=== PATIENT | female | born 1980 | race Caucasian/White ===

== ENCOUNTER 2016-07-06 14:09 | Emergency (ER) | payer MEDICAID ==
--- NOTE | 2016-07-06 14:40 | ED Physician Chart ---
Chief Complaint/HPI - Patient Information Date Seen:: 07/06/16 Time Seen:: 14:20 Chief Complaint:: Cyst History of Present Illness:: pt developed a vaginal cyst which was I and D at a local ER and sent home with a drain in it which eventually came out; pt is here today for F/U of this healing cyst; pt denies pain, vaginal bleeding, vaginal discharge, fever, chills , urinary s/s, Abd. pain, pelvic pain, A/N/V/D/C, melena, hematochezia, hematemesis,' Last Tetanus Shot: , 5 years; UTD Allergies:: Allergies Allergy/AdvReac Type Severity Reaction Status Date / Time Penicillins Allergy Verified 07/06/16 14:18 Vitals:: Vital Signs - 8 hr 07/06/16 14:20 Temp 97.7 F HR 107 RR 19 BP 137/78 O2 Sat % 98 Historian:: Patient Review:: Nurse's Note Reviewed Review of Systems - Review of Systems General/Constitutional: Fever, Chills, No weight loss, No weakness, No diaphoresis, No edema, No loss of appetite Skin: Skin lesions, Rash, No bruising Head: No headache, No light-headedness Eyes: No loss of vision, No pain, No diplopia ENT: No earache, No nasal drainage, No sore throat, No tinnitus Neck: No neck pain, No swelling, No thyromegaly, No stiffness, No mass noted Cardio Vascular: No chest pain, No palpitations, No PND, No orthopnea, No edema Pulmonary: No SOB, No cough, No sputum, No wheezing GI: Nausea, Vomiting, Diarrhea, No pain, No melena, No hematochezia, No constipation, No hematemesis G/U: No dysuria, No frequency, No hematuria Janitor Helper: Abnormal vaginal bleeding Musculoskeletal: No bone or joint pain, Back pain, Muscle pain Endocrine: Polyuria, No polydipsia Psychiatric: No prior psych history, No depression, No anxiety, No suicidal ideation Hematopoietic: No bruising, No lymphadenopathy Allergic/Immuno: No urticaria, No angioedema Neurological: No syncope, No focal symptoms, No weakness, No paresthesia, No headache, No seizure, No dizziness, No confusion, No vertigo Past Medical History - Past Medical History Past Medical History: No significant medical hx Family History: None Social History: Smoker, No Alcohol, No Drug Use, Single Surgical History: None Psychiatricy History: None Medication: Reviewed Family Medical History - Family Member Paternal Grandfather Ethnicity: Living Status: Hx Family Coronary Artery Disease: Yes Physical Exam - Physical Examination General/Constitutional: Awake, Well-developed, well-nourished, Alert, No distress, GCS 15, Non-toxic appearing, Ambulatory Head: Atraumatic Eyes: Lids, conjuctiva normal, PERRL, EOMI Skin: Nl inspection, No rash, No ecchymosis, Well hydrated, No lymphadenopathy Other Skin comments:: + small healing vaginal cyst; no discharge; no cellulitis, abscess, or wounds; good motor and sensory functions; good NV functions; no barb-rectal abscesses; no FBs ENMT: External ears, nose nl, Nasal exam nl, Lips, teeth, gums nl Neck: Nontender, Full ROM w/o pain, No JVD, No nuchal rigidity, No bruit, No mass, No stridor Respiratory: Nl effort/Exclusion, Clear to Auscultation, No Wheeze/Rhonchi/Rales Cardio Vascular: RRR, No murmur, gallop, rubs, NL S1 S2 GI: No tenderness/rebounding/guarding, No organomegaly, No hernia, Normal BS's, Nondistended, No mass/bruits, No McBurney tenderness : No CVA tenderness Extremities: No tenderness or effusion, Full ROM, normal strength in all extremities, No edema, Normal digits & nails Neuro/Psych: Alert/oriented, DTR's symmetric, Normal sensory exam, Normal motor strength, Judgement/insight normal, Mood normal, Normal gait, No focal deficits Misc: normal gait, Normal back, No paraspinal tenderness ED Septic Shock - . Is Septic Shock (SBP<90, OR Lactate>4 mmol\L) present?: No - <6hrs of presentation: Vital Signs: Vital Signs - 8 hr 07/06/16 14:20 Temp 97.7 F HR 107 RR 19 BP 137/78 O2 Sat % 98 Reassessment (Disposition) - Reassessment Reassessment:: pt is asymptomatic upon discharge Reassessment Condition:: Improved - Diagnosis Diagnosis:: Vaginal Cyst - Aftercare/Follow up Instructions Aftercare/Follow-Up Instructions:: Counseled pt regarding lab results/diagnosis & need follow up, Refer to Discharge Instructions, Counseled pt & family regarding lab results/diagnosis & need follow up Medication Prescribed:: Rx: Erytrhromycin 250mg po qid x 10 days; Neosporin Ophthalmic Ointment bid x 14 days; Warm Compresses as often as possible - Patient Disposition Discharge/Transfer:: Home Condition at Disposition:: Stable, Improved (ACIs given for all above Dx; Refer to OB-MACHINE OPERATOR ASSISTANT Specialist [facility]; F/U with PMD in one day or prn; RTER prn if existing s/s reoccur and/or get worse and/or any new s/s occur; RTER prn if concerned)
== END 2016-07-06 14:45 | disposition home or self-care (01) ==
LOC: ER 14:09
DX: N89.8 Other specified noninflammatory disorders of vagina (principal); F17.200 Nicotine dependence, unspecified, uncomplicated; Z88.0 Allergy status to penicillin
CPT/HCPCS: Z7502

== ENCOUNTER 2016-12-17 22:39 | Emergency (ER) | payer MEDICAID ==
[2016-12-17 23:43] LABS: % BASOPHILS 1.3 % (0.0-2.0); % EOSINOPHILS 0.3 % (0.0-5.0); % LYMPHOCYTES 24.5 % (20.0-50.0); % MONOCYTES 8.4 % (2.0-10.0); % NEUTROPHILS 65.5 % (40.0-80.0); HEMATOCRIT 32.1 % (41.0-60); HEMOGLOBIN 10.4 gm/dL (12-16); MEAN CELL VOLUME 77.2 fl (81-100); MEAN CORPUSCULAR HGB CONC 32.4 pg (28.0-36.0); MEAN PLATELET VOLUME 8.7 fl; PLATELET COUNT 229 Th/cmm (150-400); RED BLOOD COUNT 4.15 Mil/cmm (3.80-5.10); RED CELL DISTRIBUTION WIDTH 16.9 % (11.5-20.0); WHITE BLOOD COUNT 7.5 Th/cmm (4.8-10.8)
[2016-12-17 23:52] LABS: ALB/GLOB RATIO 1.3 (1.0-1.8); ALKALINE PHOSPHATASE 73 U/L (34-104); ANION GAP 8.7 (7.0-16.0); BILIRUBIN,TOTAL 0.2 mg/dL (0.3-1.0); BUN - UREA NITROGEN 15 mg/dL (7-25); CALCIUM SERUM 9.2 mg/dL (8.6-10.3); CHLORIDE 103 mEq/L (98-107); CREATININE - SERUM 0.5 mg/dL (0.6-1.2); GLUCOSE 106 mg/dL (70-105); POTASSIUM SERUM 3.7 mEq/L (3.5-5.1); SGOT 13 U/L (13-39); SGPT/ALT 11 U/L (7-52); SODIUM SERUM 135 mEq/L (136-145)
[2016-12-18 00:20] LABS: URINE BILIRUBIN NEGATIVE (NEGATIVE); URINE BLOOD NEGATIVE (NEGATIVE); URINE COLOR YELLOW; URINE GLUCOSE (UA) NEGATIVE (NEGATIVE); URINE KETONE TRACE mg/dL (NEGATIVE); URINE PROTEIN NEGATIVE (NEGATIVE); URINE UROBILINOGEN 0.2 E.U./dL (0.2 - 1.0)
[2016-12-18 00:21] LABS: URINE BACTERIA FEW /hpf (NONE SEEN); URINE EPITHELIAL CELLS MODERATE /lpf (FEW); URINE RBC 0-2 /hpf (0-5)
--- NOTE | 2016-12-18 04:51 | ER Physician Documentation ---
DATE OF SERVICE: PATIENT IDENTIFICATION: A 36-year-old female patient, date of 1980, full code patient. Body surface area 1.98 square-centimeter and weighing ____ kilograms. ALLERGIES: To penicillin. HISTORY OF PRESENT ILLNESS: History was taken from the patient. The patient's boyfriend was around the patient and he was there when I was interviewing and he stood by when I did the general physical examination. History was taken from the patient only and I spoke to the nurse, essentially the patient complained that she was in the snf today from 12 o'clock to somewhere around 8 o'clock and she was supposed to go to the court tomorrow and apparently they released her around 8 o'clock and the patient was advised to come to the court again on 01/31/2017. She comes here with a complaint of anxiety, shortness of breath, and she has some fullness in the vaginal area and she says she has some discharge whitish in the vaginal area. She says she had every couple of months fungus-type infection in that area and she put some 7-day cream and then she gets better. She never had urinary tract infection. She has never had any pyelonephritis. The patient states that she feels better, but she denies any diabetes mellitus. When I asked her that does she use any sugar-containing food more often, she said yeah and her weight is also a lot high ____. The patient's other complaint is that she uses meth 1 gram every day. When I asked her how much it costs, according to her it costs about 25 dollars a day and she uses that since she was 15 years of age and she smokes 1 pack of cigarettes for past at least 17 years of age. She does not drink any alcoholic beverages. Other past history includes that she has a history of kidney stones. She has a history of 1 and she has a past history of posttraumatic stress syndrome. REVIEW OF SYSTEMS: EYES: No history of double vision, blurring, blindness. No history of exophthalmos. CENTRAL NERVOUS SYSTEM: No history of TIA, stroke, encephalitis, meningitis. No history of intracranial tumor. No history of any seizures. Despite using methamphetamine, she denies any neurological symptoms or signs. PULMONARY: The patient has some mild cough and some mild shortness of breath, otherwise no significant complaints. No history of pneumonia, TB, pulmonary embolism, COPD, emphysema or bronchitis. BONES AND JOINTS: No apparent complaints. GASTROINTESTINAL: No history of diarrhea, vomiting, abdominal pain. No history of cirrhotic liver. No history of any tenderness, pain, guarding in the upper or lower abdomen. No definite findings suggestive of pelvic inflammatory disease. GENITOURINARY: No burning, no frequency, no dysuria. VAGINAL: Examination was not done. The nurses will get vaginal culture done and from the cervix, they will get papillomavirus examination and culture done and the patient may need to see the perforator loader for probably getting papillomavirus vaccine and to see if there is anything more to be done. HEART: Reveals no history of any chest pain. No history of any palpitations. No history of any cardiac arrhythmia. No history of any rheumatic fever, valvular heart disease, pericardial disease, cardiomyopathy. Denies any PND, orthopnea, dyspnea on exertion. GENERAL: She said she usually takes ____, but she has not taken any methamphetamine today. She was given 1 mg benzodiazepine that is Ativan given by Darrick novak, our nurse. PHYSICAL EXAMINATION: The patient appears to be awake, alert, oriented. On the fingers she has some tattoo saying love. She has slightly enlarged thyroid to my examination and that thyroid moves up and down when swallowing. Hence, T4 and TSH examination has been ordered. Vital signs reveals temperature 97.5, pulse of 97, respirations of 18, blood pressure 130/78, oxygen saturation is 100%, height of 5 feet 7 inches, weighing 190 pounds. Last menstrual period is 12/02/2016. On physical exam, the patient appears to be awake, alert, and oriented, not in any acute cardiorespiratory distress except for some mild anxiety. Overall, general exam is benign and negative, no meningeal signs. No evidence of any edema over the legs ____. No definite evidence of any clubbing noted. No evidence of any tremors, shaking or any withdrawal effect seen. Chest is clear. Trachea being central, fairly good air entry in both lungs without any rales, rhonchi, or bronchial wheezing. Abdomen is soft, benign and negative. Liver and spleen are not enlarged. No free fluid in the abdominal cavity. No ascites. No varicose veins on the abdomen is noted. Heart reveals normal heart sounds. ____ third heart sound is absent. No pericardial rubs ____ no clicks, no rubs, maybe a soft grade 1/6 soft systolic murmur. Central nervous systems is grossly within normal limits. Vaginal examination, culture will be done by the nurse. LABORATORY DATA: Workup has been ordered. CBC, magnesium level, free T4 level and CMP level have been ordered. PLAN: The patient has been given some doxycycline ____ Flagyl is not given because I do not suspect any pelvic inflammatory disease. Miconazole vaginal suppository has been given to the patient. Lorazepam 1 mg has been given IV and doxycycline 100 mg p.o. has been given. FINAL DIAGNOSES: The patient has presented with anxiety attack and probably she has not taken her methamphetamine and she was advised to give up and go to the program, but she is not yet ready to go. All instructions were given to the patient. Other diagnoses that she has is vaginal pain and discharge from the vaginal area and some kind of fluffiness, etc. It is noted according to her, she has been getting yeast infection every 2 months. She does not have any diabetes mellitus. We will give her Monistat vaginal suppository at the present moment along with culture and papillomavirus from the cervical area will also be checked out. The patient's other diagnoses include past history of posttraumatic stress syndrome; history of kidney stones; history of x 1, but she denied it to me, but to the nurse she said yes. Allergies to penicillin, I believe it is rash, we will double check it out ____. ADDENDUM The patient's lab reports, etc. were sent out and we just got the report back. LABORATORY DATA: White count is 7.5, hemoglobin is 10.4, hematocrit is 32.1, mean corpuscular volume is low at 77.2, mean corpuscular hemoglobin is also low, about, 25. Electrolytes show sodium 135, potassium 4.3, chloride 103, CO2 28.6, glucose is 121, BUN is 12, creatinine is 0.8. The patient's amylase is low at 25 and a lactic acid is ____. In light of this, the patient's self-diagnosis is vaginal yeast infection for which Mycolog vaginal cream has been given. In view of the patient having multiple vaginal symptoms of swelling and pain and some discomfort in that area. It is better that she should go to an [facility] where she can get a complete CREW LEADER GLUING examination including culture including bacterial, fungal as well as papilloma virus culture. Probably she might need papilloma virus vaccination which also could be given by the perforator loader. FINAL DIAGNOSES: 1. Urinary tract infection with yeast. 2. 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 3. Chronic smoker 1 pack a day for many, many years. 4. Chronic obstructive pulmonary disease by default. 5. History of kidney stones. 6. Previous history of posttraumatic stress syndrome. 7. Allergy to PENICILLIN. I would double check it if she has any rash and there is a history of that was given. I will have to check it out to see but she denied that to me. JOB# [id number]
[2016-12-18] MEDS ORDERED: MICONAZOLE NITRATE 100 MG KIT VG SCH (09:00)
== END 2016-12-18 00:25 | disposition home or self-care (01) ==
LOC: ER 22:39
DX: N39.0 Urinary tract infection, site not specified (principal); F17.210 Nicotine dependence, cigarettes, uncomplicated; J44.1 Chronic obstructive pulmonary disease with (acute) exacerbation; Z88.0 Allergy status to penicillin; F15.10 Other stimulant abuse, uncomplicated
CPT/HCPCS: 99284; 96374; 36415; 84443; 85025; 87086; 81001; 83735; 80053; 84439; J2060; Z7502